=== PATIENT | male | born 1965 | race Caucasian/White ===

== ENCOUNTER 2017-05-21 18:39 | Emergency (ER) | payer BC ==
[2017-05-21] MEDS ORDERED: HYDROmorphone 1 MG/ML Syringe IM ONE (19:13)
--- NOTE | 2017-05-21 19:16 | EDM.PDOC ---
ED HPI GENERAL MEDICAL PROBLEM - General Chief Complaint: Upper Extremity Injury/Pain Stated Complaint: R HAND/WRIST SWELLING Time Seen by Provider: 05/21/17 19:09 Source of Information: Reports: Patient, Family, RN Notes Reviewed History Limitations: Reports: No Limitations - History of Present Illness INITIAL COMMENTS - FREE TEXT/NARRATIVE: 51-year-old gentleman presents emergency department today complaint of right hand swelling, he was evaluated by his primary care yesterday started on tramadol x-ray at the time done yesterday shows soft tissue swelling and arthritic changes suggestive of osteoarthritis no fracture or dislocation is noted, he states the hand is warm he did have a break in the skin about 2 weeks ago about 5 days ago he noticed some redness starting over the hand and about 3 days ago started having significant swelling and increased pain Right Hand Pain Score (Numeric/FACES): 10 - Related Data Allergies Allergy/AdvReac Type Severity Reaction Status Date / Time No Known Allergies Allergy Verified 05/21/17 18:55 Home Meds: Home Meds Ibuprofen [Ibuprofen] 50 mg PO QID 05/21/17 [History] Losartan [Cozaar] 50 mg PO DAILY 05/21/17 [History] Metoprolol Succinate [Toprol XL] 50 mg PO DAILY 05/21/17 [History] traMADol [Ultram] 50 mg PO ASDIRECTED PRN 05/21/17 [History] Past Medical History Cardiovascular History: Reports: Hypertension Gastrointestinal History: Reports: Colon Polyp Musculoskeletal History: Reports: Arthritis - Infectious Disease History Infectious Disease History: Reports: Chicken Pox - Past Surgical History GI Surgical History: Reports: Colonoscopy Social & Family History - Tobacco Use Smoking Status *Q: Never Smoker - Caffeine Use Caffeine Use: Reports: Coffee, Energy Drinks, Soda - Recreational Drug Use Recreational Drug Use: No Review of Systems - Review of Systems Review Of Systems: See Below Constitutional: Denies: Chills, Fever Musculoskeletal: Reports: Hand Pain Skin: Reports: Pallor, Rash, Erythema, Wound Neurological: Reports: No Symptoms ED EXAM, GENERAL - Physical Exam Exam: See Below Free Text/Narrative:: Examination of the right hand he does have marked edema over the dorsal surface of the hand into the proximal phalanges he has full range of motion all digits radial pulses +2 it is warm to the touch there to superficial abrasions noted on the dorsal surface tender to palpation Exam Limited By: No Limitations General Appearance: Alert, WD/WN, No Apparent Distress Course - Vital Signs Last Recorded V/S: Last Vital Signs Temp 98.6 F 05/21/17 18:57 Pulse 71 05/21/17 18:57 Resp 15 05/21/17 18:57 BP 137/76 05/21/17 18:57 Pulse Ox 96 05/21/17 18:57 - Orders/Labs/Meds Labs: Laboratory Tests 05/21/17 05/21/17 05/21/17 Range/Units 19:25 19:25 19:25 WBC 7.1 (4.5-11.0) K/uL RBC 4.84 (4.30-5.90) M/uL Hgb 15.4 H (12.0-15.0) g/dL Hct 43.0 (40.0-54.0) % MCV 89 (80-98) fL MCH 32 H (27-31) pg MCHC 36 (32-36) % Plt Count 191 (150-400) K/uL Neut % (Auto) 64 (36-66) % Lymph % (Auto) 18 L (24-44) % [place] % (Auto) 11 H (2-6) % Eos % (Auto) 6 H (2-4) % Baso % (Auto) 1 (0-1) % Sodium 141 (140-148) mmol/L Potassium 3.8 (3.6-5.2) mmol/L Chloride 104 (100-108) mmol/L Carbon Dioxide 31 (21-32) mmol/L Anion Gap 9.8 (5.0-14.0) mmol/L BUN 11 (7-18) mg/dL Creatinine 0.9 (0.8-1.3) mg/dL Est Cr Clr Drug Dosing 90.79 mL/min Estimated GFR (MDRD) > 60 (>60) Glucose 90 (74-106) mg/dL Lactic Acid 0.9 (0.4-2.0) mmol/L Uric Acid 5.1 (3.5-7.2) mg/dL Calcium 9.2 (8.5-10.1) mg/dL C-Reactive Protein 1.06 H (0.0-0.3) mg/dL Meds: Medications Discontinued Medications Generic Name Dose Route Start Last Admin Trade Name Freq PRN Reason Stop Dose Admin Ceftriaxone Sodium 1 gm/ 0 gm 05/21/17 20:09 Lidocaine HCl 2.1 ml IM 05/21/17 20:10 ONETIME ONE Hydromorphone HCl 1 mg 05/21/17 19:13 05/21/17 19:28 Dilaudid IM 05/21/17 19:14 1 mg ONETIME ONE Administration Departure - Departure Time of Disposition: 20:12 Disposition: Home, Self-Care 01 Condition: Good Clinical Impression: Cellulitis of hand, right - Discharge Information Referrals: Lawson Ashton Sr, MD [Primary Care Provider] - Forms: ED Department Discharge Additional Instructions: Take full course of antibiotics, use hydrocodone as needed for pain control, use ibuprofen for baseline pain control, please follow-up with your primary care provider in the next 2-3 days for reevaluation - Assessment/Plan Plan: Assessment Acuity = acute Site and laterality = cellulitis right hand Etiology = probable bacterial cause Manifestations = pain, edema Location of injury = Home Lab values = CBC, CMP unremarkable CRP elevated 1.06 Plan He was given 1 g Rocephin in the emergency department prescription written for Keflex 500 mg 4 times a day 7 days plus hydrocodone 5/325 one tab by mouth 3 times a day when necessary have him follow-up with his primary care in 2-3 days for reevaluation This note was dictated using [employer] voice recognition software please call with any questions on syntax or alonzo.
[2017-05-21] MEDS ORDERED: cefTRIAXone 1 GM, Lidocaine 1% 2.1 ML IM ONE ×2 (20:09)
== END 2017-05-21 20:24 | disposition home or self-care (01) ==
LOC: JP.ED 18:39
DX: L03.113 Cellulitis of right upper limb (principal); S60.511A Abrasion of right hand, initial encounter; I10 Essential (primary) hypertension; Z79.899 Other long term (current) drug therapy; X58.XXXA Exposure to other specified factors, initial encounter
CPT/HCPCS: 36415; 80048; 83605; 84550; 85025; 86140; 96372; 99284; J0696; J1170

== ENCOUNTER 2017-05-23 19:23 | Inpatient (IN) | payer BC ==
[2017-05-23] MEDS: Acetaminophen/HYDROcodone 325-5 MG Tab PO PRN (20:44)
[2017-05-23] MEDS ORDERED: Sodium Chloride 0.9% 10 ML Syringe FLUSH PRN (20:52)
[2017-05-23] MEDS ORDERED: Naloxone 0.4 MG/ML SDV IVPUSH PRN (22:07)
[2017-05-23] MEDS ORDERED: Sodium Chloride 0.9% 1,000 ML IV SCH (22:15)
[2017-05-24] MEDS: Acetaminophen/HYDROcodone 325-5 MG Tab PO PRN ×4 (02:03→17:33)
[2017-05-24] MEDS: VANCOMYCIN PHARMACY TO DOSE SCH ×2 (07:44→09:22)
[2017-05-24] MEDS: Metoprolol Succinate 50 MG Tab.ER PO SCH (08:59)
[2017-05-24] MEDS: Losartan 50 MG Tab PO SCH (08:59)
[2017-05-24] MEDS: HYDROmorphone/Normal Saline 15 MG/30 ML PCA IV PRN (12:26)
--- NOTE | 2017-05-24 12:38 | PCM.HP ---
H&P History of Present Illness - General Date of Service: 05/23/17 Admit Problem/Dx: Admission Diagnosis/Problem Admission Diagnosis/Problem Infection of hand Source of Information: Patient, Provider - History of Present Illness Initial Comments - Free Text/Narative: Drew started to have pain in his right hand Saturday with swelling and pain in the mid Knuckle. I saw him on Saturday and had swelling and pain of the knuckle. X-ray was done which showed arthritis no other abnormality. The etiology was unknown. They swelling progressed and went to the ER and was given antibiotics without improvement. I saw him this morning and sent him to Dr. Tapia a hand surgeon who advised him to be in the hospital and he wanted to come here rather than [facility]. Dr Tapia advised to start of Vanco and raise the hand and be in the hospital. I am concerned about a compartment syndrome as he can not move his middle finger. Right Hand Pain Score (Numeric/FACES): 10 - Related Data Allergies/Adverse Reactions: Allergies Allergy/AdvReac Type Severity Reaction Status Date / Time No Known Allergies Allergy Verified 05/23/17 19:50 Home Medications: Home Meds Losartan [Cozaar] 50 mg PO DAILY 05/21/17 [History] Metoprolol Succinate [Toprol XL] 50 mg PO DAILY 05/21/17 [History] Ibuprofen [Ibuprofen] 800 mg PO QID PRN 05/24/17 [History] traMADol [Ultram] 50 mg PO Q6H PRN 05/24/17 [History] Past Medical History HEENT History: Reports: None Cardiovascular History: Reports: Hypertension Gastrointestinal History: Reports: Colon Polyp Musculoskeletal History: Reports: Arthritis Dermatologic History: Reports: Cellulitis - Infectious Disease History Infectious Disease History: Reports: Chicken Pox - Past Surgical History HEENT Surgical History: Reports: None GI Surgical History: Reports: Colonoscopy Social & Family History - Family History HEENT: Reports: None Cardiac: Reports: MA, Stent : Reports: None OBGYN: Reports: None Endocrine/Metabolic: Reports: Diabetes, Type I Hematologic: Reports: None Oncologic: Reports: Lung, Ovarian - Tobacco Use Smoking Status *Q: Never Smoker Second Hand Smoke Exposure: No - Caffeine Use Caffeine Use: Reports: Coffee, Energy Drinks - Recreational Drug Use Recreational Drug Use: No H&P Review of Systems - Review of Systems: Review Of Systems: See Below General: Reports: No Symptoms HEENT: Reports: No Symptoms Pulmonary: Reports: No Symptoms Cardiovascular: Reports: No Symptoms Gastrointestinal: Reports: No Symptoms Musculoskeletal: Reports: Joint Pain, Other (swelling and pain right hand) Skin: Reports: No Symptoms Psychiatric: Reports: No Symptoms Exam - Exam Exam: See Below - Vital Signs Vital Signs: Last Vital Signs Temp 98.4 F 05/24/17 11:00 Pulse 68 05/24/17 11:00 Resp 18 05/24/17 11:00 BP 135/75 05/24/17 11:00 Pulse Ox 95 05/24/17 11:00 Weight: 201 lb 4 oz - Exam General: Alert, Oriented, 4 HEENT: PERRLA, Hearing Intact, Mucosa Moist & [place], Nares Patent, Normal Nasal Septum, Posterior Pharynx Clear, Conjunctiva Clear, EOMI, EACs Clear, TMs Clear Neck: Supple, Trachea Midline, 2 Lungs: Clear to Auscultation, Normal Respiratory Effort Cardiovascular: Regular Rate, Regular Rhythm GI/Abdominal Exam: Normal Bowel Sounds, Soft, Non-Tender, No Organomegaly, No Distention, No Abnormal Bruit, No Mass, Pelvis Stable Extremities: Other (right hand swelling and unable to move his middle finger.) Peripheral Pulses: 1+: Radial (L), Radial (R) Neuro Extensive - Mental Status: Alert, Oriented x3, Normal Mood/Affect, Normal Cognition Neuro Extensive - Motor, Sensory, Reflexes: CN II-XII Intact, Normal Gait, Normal Reflexes - Patient Data Lab Results Last 24 hrs: Laboratory Results - last 24 hr 05/23/17 05/23/17 05/23/17 Range/Units 20:54 20:54 22:47 WBC 8.1 (4.5-11.0) K/uL RBC 4.66 (4.30-5.90) M/uL Hgb 14.9 (12.0-15.0) g/dL Hct 41.5 (40.0-54.0) % MCV 89 (80-98) fL MCH 32 H (27-31) pg MCHC 36 (32-36) % Plt Count 197 (150-400) K/uL Neut % (Auto) 67 H (36-66) % Lymph % (Auto) 17 L (24-44) % [place] % (Auto) 9 H (2-6) % Eos % (Auto) 7 H (2-4) % Baso % (Auto) 0 (0-1) % Sodium 139 L (140-148) mmol/L Potassium 3.9 (3.6-5.2) mmol/L Chloride 101 (100-108) mmol/L Carbon Dioxide 31 (21-32) mmol/L Anion Gap 10.9 (5.0-14.0) mmol/L BUN 13 (7-18) mg/dL Creatinine 0.9 (0.8-1.3) mg/dL Est Cr Clr Drug Dosing 87.63 mL/min Estimated GFR (MDRD) > 60 (>60) Glucose 91 (74-106) mg/dL Calcium 8.7 (8.5-10.1) mg/dL Total Bilirubin 0.6 (0.2-1.0) mg/dL AST 34 (15-37) U/L ALT 53 (12-78) U/L Alkaline Phosphatase 55 (46-116) U/L Total Protein 7.0 (6.4-8.2) g/dL Albumin 3.7 (3.4-5.0) g/dL Globulin 3.3 (2.3-3.5) g/dL Albumin/Globulin Ratio 1.1 L (1.2-2.2) Urine Color Yellow Urine Appearance Clear Urine pH 7.0 (4.5-8.0) Ur Specific [place] 1.015 (1.008-1.030) Urine Protein Negative (NEGATIVE) mg/dL Urine Glucose (UA) Normal (NEGATIVE) mg/dL Urine Ketones Negative (NEGATIVE) mg/dL Urine Occult Blood Negative (NEGATIVE) Urine Nitrite Negative (NEGAITVE) Urine Bilirubin Negative (NEGATIVE) Urine Urobilinogen 4 (NORMAL) mg/dL Ur Leukocyte Esterase Negative (NEGATIVE) Urine RBC 0-5 (0-5) Urine WBC 0-5 (0-5) Ur Epithelial Cells Few Amorphous Sediment Few Urine Bacteria Few Urine Mucus Not seen Result Diagrams: 05/23/17 20:54 05/23/17 20:54 *Q Meaningful Use (ADM) - VTE *Q VTE Criteria *Q: - Stroke *Q Stroke Criteria *Q: - AMI *Q AMI Criteria *Q: Problem List Initiated/Reviewed/Updated: Yes Orders Last 24hrs: Active Orders 24 hr Category Date Time Status Admission Status [Patient Status] [ADT] Routine ADT 05/23/17 19:23 Active Activity as Tolerated [RC] .Routine Care 05/23/17 21:02 Active Communication Order [RC] Per Unit Routine Care 05/23/17 21:00 Active Communication Order [RC] STAT Care 05/23/17 22:07 Active Notify Provider [RC] PRN Care 05/23/17 22:07 Active HOST/HOSTESS RESTAURANT Record [RC] PER UNIT ROUTINE Care 05/23/17 22:07 Active Pulse Oximetry [RC] CONTINUOUS Care 05/23/17 22:07 Active Vital Signs [RC] Q8H Care 05/23/17 20:51 Active PT Evaluation and Treatment [CONS] Routine Cons 05/23/17 21:01 Active Regular Diet [DIET] Diet 05/24/17 Breakfast Active VANCOMYCIN TROUGH [CHEM] Timed Lab 05/25/17 08:30 Ordered Acetaminophen/HYDROcodone [[place] 325-5 MG] Med 05/23/17 20:17 Active 1 - 2 tab PO Q4H PRN HYDROmorphone/Normal Saline [Dilaudid HOST/HOSTESS RESTAURANT 15 MG in NS Med 05/23/17 22:07 Active 30 ML] See Protocol IV ASDIRECTED PRN Losartan [Cozaar] Med 05/24/17 09:00 Active 50 mg PO DAILY Metoprolol Succinate [Toprol XL] Med 05/24/17 09:00 Active 50 mg PO DAILY Naloxone [Narcan] Med 05/23/17 22:07 Active 0.4 mg IVPUSH Q2M PRN Sodium Chloride 0.9% [Normal Saline] 1,000 ml Med 05/23/17 22:15 Active IV ASDIRECTED Sodium Chloride 0.9% [Saline Flush] Med 05/23/17 20:52 Active 10 ml FLUSH ASDIRECTED PRN Vancomycin 1.25 gm Med 05/23/17 21:00 Active Sodium Chloride 0.9% [Normal Saline] 250 ml IV Q12H Medication Discontinuation Instructions [OM.PC] Stat Oth 05/23/17 22:07 Ordered Saline Lock Insert [OM.PC] Routine Oth 05/23/17 20:52 Ordered Medication Orders Hydrocodone Bitart/Acetaminophen ([place] 325-5 Mg) 1 - 2 tab PO Q4H PRN PRN Reason: Pain Last Admin: 05/24/17 12:24 Dose: 2 tab Admin: 05/24/17 07:48 Dose: 2 tab Admin: 05/24/17 02:03 Dose: 2 tab Admin: 05/23/17 20:44 Dose: 2 tab Hydromorphone HCl (Dilaudid Medical Authorization Specialist 15 Mg In Ns 30 Ml) 0 mg IV ASDIRECTED PRN; Protocol PRN Reason: Pain Last Admin: 05/24/17 12:26 Dose: 15 mg Vancomycin HCl 1.25 gm/ Sodium (Chloride) 250 mls @ 166.667 mls/hr IV Q12H NIRAV Last Admin: 05/24/17 08:44 Dose: 166.667 mls/hr Admin: 05/23/17 22:29 Dose: 166.667 mls/hr Sodium Chloride (Normal Saline) 1,000 mls @ 25 mls/hr IV ASDIRECTED NIRAV Losartan Potassium (Cozaar) 50 mg PO DAILY [facility] Last Admin: 05/24/17 08:59 Dose: 50 mg Metoprolol Succinate (Toprol Xl) 50 mg PO DAILY [facility] Last Admin: 05/24/17 08:59 Dose: 50 mg Naloxone HCl (Narcan) 0.4 mg IVPUSH Q2M PRN PRN Reason: Respiratory Distress Sodium Chloride (Saline Flush) 10 ml FLUSH ASDIRECTED PRN PRN Reason: Keep Vein Open Assessment/Plan Comment:: Assessment/Plan: #1. Infection of right hand: Will srart him on Vancomycin and begin PT Control kpain with medicine. #2. HTN: continue with Losartan
--- NOTE | 2017-05-24 16:24 | PCM.PN ---
- General Info Date of Service: 05/24/17 Functional Status: Reports: Pain Controlled - Review of Systems General: Reports: No Symptoms Pulmonary: Reports: No Symptoms Cardiovascular: Reports: No Symptoms Gastrointestinal: Reports: No Symptoms Musculoskeletal: Reports: No Symptoms Skin: Reports: No Symptoms Psychiatric: Reports: No Symptoms - Patient Data Vitals - Most Recent: Last Vital Signs Temp 99.5 F 05/24/17 16:06 Pulse 98 05/24/17 16:06 Resp 18 05/24/17 16:06 BP 125/67 05/24/17 16:06 Pulse Ox 98 05/24/17 16:06 Weight - Most Recent: 201 lb 4 oz I&O - Last 24 Hours: Intake & Output 05/24/17 05/24/17 05/24/17 06:59 14:59 22:59 Intake Total 552 250 Balance 552 250 Lab Results Last 24 Hours: Laboratory Results - last 24 hr 05/23/17 05/23/17 05/23/17 Range/Units 20:54 20:54 22:47 WBC 8.1 (4.5-11.0) K/uL RBC 4.66 (4.30-5.90) M/uL Hgb 14.9 (12.0-15.0) g/dL Hct 41.5 (40.0-54.0) % MCV 89 (80-98) fL MCH 32 H (27-31) pg MCHC 36 (32-36) % Plt Count 197 (150-400) K/uL Neut % (Auto) 67 H (36-66) % Lymph % (Auto) 17 L (24-44) % [place] % (Auto) 9 H (2-6) % Eos % (Auto) 7 H (2-4) % Baso % (Auto) 0 (0-1) % Sodium 139 L (140-148) mmol/L Potassium 3.9 (3.6-5.2) mmol/L Chloride 101 (100-108) mmol/L Carbon Dioxide 31 (21-32) mmol/L Anion Gap 10.9 (5.0-14.0) mmol/L BUN 13 (7-18) mg/dL Creatinine 0.9 (0.8-1.3) mg/dL Est Cr Clr Drug Dosing 87.63 mL/min Estimated GFR (MDRD) > 60 (>60) Glucose 91 (74-106) mg/dL Calcium 8.7 (8.5-10.1) mg/dL Total Bilirubin 0.6 (0.2-1.0) mg/dL AST 34 (15-37) U/L ALT 53 (12-78) U/L Alkaline Phosphatase 55 (46-116) U/L Total Protein 7.0 (6.4-8.2) g/dL Albumin 3.7 (3.4-5.0) g/dL Globulin 3.3 (2.3-3.5) g/dL Albumin/Globulin Ratio 1.1 L (1.2-2.2) Urine Color Yellow Urine Appearance Clear Urine pH 7.0 (4.5-8.0) Ur Specific [place] 1.015 (1.008-1.030) Urine Protein Negative (NEGATIVE) mg/dL Urine Glucose (UA) Normal (NEGATIVE) mg/dL Urine Ketones Negative (NEGATIVE) mg/dL Urine Occult Blood Negative (NEGATIVE) Urine Nitrite Negative (NEGAITVE) Urine Bilirubin Negative (NEGATIVE) Urine Urobilinogen 4 (NORMAL) mg/dL Ur Leukocyte Esterase Negative (NEGATIVE) Urine RBC 0-5 (0-5) Urine WBC 0-5 (0-5) Ur Epithelial Cells Few Amorphous Sediment Few Urine Bacteria Few Urine Mucus Not seen Med Orders - Current: Current Medications Hydrocodone Bitart/Acetaminophen ([place] 325-5 Mg) 1 - 2 tab PO Q4H PRN PRN Reason: Pain Last Admin: 05/24/17 12:24 Dose: 2 tab Hydromorphone HCl (Dilaudid Rn Intern 15 Mg In Ns 30 Ml) 0 mg IV ASDIRECTED PRN; Protocol PRN Reason: Pain Last Admin: 05/24/17 12:26 Dose: 15 mg Vancomycin HCl 1.25 gm/ Sodium (Chloride) 250 mls @ 166.667 mls/hr IV Q12H NIRAV Last Admin: 05/24/17 08:44 Dose: 166.667 mls/hr Sodium Chloride (Normal Saline) 1,000 mls @ 25 mls/hr IV ASDIRECTED NIRAV Losartan Potassium (Cozaar) 50 mg PO DAILY NIRAV Last Admin: 05/24/17 08:59 Dose: 50 mg Metoprolol Succinate (Toprol Xl) 50 mg PO DAILY NIRAV Last Admin: 05/24/17 08:59 Dose: 50 mg Naloxone HCl (Narcan) 0.4 mg IVPUSH Q2M PRN PRN Reason: Respiratory Distress Sodium Chloride (Saline Flush) 10 ml FLUSH ASDIRECTED PRN PRN Reason: Keep Vein Open Discontinued Medications Lidocaine HCl (Xylocaine-Mpf 1%) 0.1 ml INJECT ONETIME ONE Stop: 05/23/17 23:32 Last Admin: 05/23/17 23:43 Dose: 0.1 ml Vancomycin Pharmacy (To Dose) 0 each .XX DAILY NIRAV Stop: 05/24/17 09:00 Last Admin: 05/24/17 09:22 Dose: Not Given - Exam General: Alert, Oriented Neck: Supple Lungs: Clear to Auscultation, Normal Respiratory Effort Cardiovascular: Regular Rate, Regular Rhythm Back Exam: Other (Knuckle more prominent as swelling goes down.) - Problem List Review Problem List Initiated/Reviewed/Updated: Yes - My Orders Last 24 Hours: My Active Orders 05/23/17 19:23 Admission Status [Patient Status] [ADT] Routine 05/23/17 20:17 Acetaminophen/HYDROcodone [[place] 325-5 MG] 1 - 2 tab PO Q4H PRN 05/23/17 20:51 Vital Signs [RC] Q8H 05/23/17 20:52 Sodium Chloride 0.9% [Saline Flush] 10 ml FLUSH ASDIRECTED PRN Saline Lock Insert [OM.PC] Routine 05/23/17 21:00 Communication Order [RC] Per Unit Routine Vancomycin 1.25 gm Sodium Chloride 0.9% [Normal Saline] 250 ml IV Q12H 05/23/17 21:01 PT Evaluation and Treatment [CONS] Routine 05/23/17 21:02 Activity as Tolerated [RC] .Routine 05/23/17 22:07 Communication Order [RC] STAT Notify Provider [RC] PRN CLOTH LAMINATING SUPERVISOR Record [RC] PER UNIT ROUTINE Pulse Oximetry [RC] CONTINUOUS HYDROmorphone/Normal Saline [Dilaudid CLOTH LAMINATING SUPERVISOR 15 MG in NS 30 ML] See Protocol IV ASDIRECTED PRN Naloxone [Narcan] 0.4 mg IVPUSH Q2M PRN Medication Discontinuation Instructions [OM.PC] Stat 05/23/17 22:15 Sodium Chloride 0.9% [Normal Saline] 1,000 ml IV ASDIRECTED 05/24/17 09:00 Losartan [Cozaar] 50 mg PO DAILY Metoprolol Succinate [Toprol XL] 50 mg PO DAILY 05/24/17 14:35 SCD [Sequential Compression Device] [OM.PC] Routine 05/24/17 Breakfast Regular Diet [DIET] 05/25/17 08:30 VANCOMYCIN TROUGH [CHEM] Timed - Plan Plan:: Assessment/Plan: #1. Infection of right hand: Will srart him on Vancomycin and begin PT Control pain with medicine. #2. HTN: continue with Losartan. He does have a low grade fever of 99.5 will continue with Vanco as the swelling is going down Will do blood work in the morning.
[2017-05-24] MEDS ORDERED: Docusate Sodium 100 MG Cap PO PRN (20:39)
[2017-05-24] MEDS ORDERED: diphenhydrAMINE 25 MG Cap PO PRN (21:27)
[2017-05-25] MEDS: HYDROmorphone/Normal Saline 15 MG/30 ML PCA IV PRN (08:32)
[2017-05-25] MEDS: Metoprolol Succinate 50 MG Tab.ER PO SCH (08:41)
[2017-05-25] MEDS: Losartan 50 MG Tab PO SCH (08:41)
[2017-05-25] MEDS ORDERED: oxyCODONE 5 MG Tab PO PRN (13:34)
--- NOTE | 2017-05-25 13:43 | PCM.CONS ---
H&P History of Present Illness - General Date of Service: 05/25/17 Admit Problem/Dx: Admission Diagnosis/Problem Admission Diagnosis/Problem Infection of hand Source of Information: Patient, Family, Provider - History of Present Illness Initial Comments - Free Text/Narative: Sean was admitted for management of cellulitis involving the right hand 2 days ago. I was asked to see him for a second opinion regarding cellulitis management. He reports scraping his hand approximately 5-6 days ago. He noted redness and swelling involving the third and fourth fingers on his right hand the next day. He was seen in the emergency room clinic and started on oral cephalexin. He was seen in the clinic the next day and sent to see a hand specialist. There was concern for infection at that point and he was then admitted to the hospital for IV antibiotics. He has been managed with vancomycin. He has been having low-grade temperature elevations but no true fevers. He reports throbbing pain involving the dorsum of his right hand extending in between the fingers. This is a moderately severe pain that is worse with any sort of pressure or movement. He has been using pain pills and IV pain medications with some improvement in his pain. Other than his hand he feels well and does not endorse shortness of breath or abdominal pain. Vital signs have been stable. White count is normal. Right Hand Pain Score (Numeric/FACES): 8 - Related Data Allergies/Adverse Reactions: Allergies Allergy/AdvReac Type Severity Reaction Status Date / Time No Known Allergies Allergy Verified 05/23/17 19:50 Home Medications: Home Meds Losartan [Cozaar] 50 mg PO DAILY 05/21/17 [History] Metoprolol Succinate [Toprol XL] 50 mg PO DAILY 05/21/17 [History] Ibuprofen [Ibuprofen] 800 mg PO QID PRN 05/24/17 [History] traMADol [Ultram] 50 mg PO Q6H PRN 05/24/17 [History] Past Medical History HEENT History: Reports: None Cardiovascular History: Reports: Hypertension Gastrointestinal History: Reports: Colon Polyp Musculoskeletal History: Reports: Arthritis Dermatologic History: Reports: Cellulitis - Infectious Disease History Infectious Disease History: Reports: Chicken Pox - Past Surgical History HEENT Surgical History: Reports: None GI Surgical History: Reports: Colonoscopy Social & Family History - Family History HEENT: Reports: None Cardiac: Reports: GA, Stent : Reports: None OBGYN: Reports: None Endocrine/Metabolic: Reports: Diabetes, Type I Hematologic: Reports: None Oncologic: Reports: Lung, Ovarian - Tobacco Use Smoking Status *Q: Never Smoker Second Hand Smoke Exposure: No - Caffeine Use Caffeine Use: Reports: Coffee, Energy Drinks - Alcohol Use Alcohol Use History: No - Recreational Drug Use Recreational Drug Use: No H&P Review of Systems - Review of Systems: Review Of Systems: See Below Free Text/Narrative: A complete 12 point review of systems was obtained. Pertinent positives and negatives are noted in the history of present illness. All other systems were reviewed and were negative except as noted. Exam - Exam Exam: See Below - Vital Signs Vital Signs: Last Vital Signs Temp 37.6 C 05/25/17 11:58 Pulse 82 05/25/17 11:58 Resp 16 05/25/17 11:58 BP 142/77 H 05/25/17 11:58 Pulse Ox 97 05/25/17 13:15 Weight: 91.285 kg - Exam Quality Assessment: No: Supplemental Oxygen General: Alert, Oriented, Cooperative. No: Mild Distress HEENT: Conjunctiva Clear, Mucosa Moist & [place]. No: Scleral Icterus Lungs: Normal Respiratory Effort GI/Abdominal Exam: Soft, No Distention Extremities: No Pedal Edema, Other (dorsum of right hand very swollen with approximately 2 cm diameter area of fluctuance just proximal to the distal portion of the third metacarpal. There is significant overlying warmth, induration and erythema extending laterally to the fourth metacarpal and medially to the edge of the second metacarpal. The warmth, swelling and tenderness wraps around to the palmar surface between the second and third and third and fourth fingers.) Skin: Warm, Dry Neuro Extensive - Mental Status: Alert, Oriented x3 Psychiatric: Alert, Normal Affect - Patient Data Lab Results Last 24 hrs: Laboratory Results - last 24 hr 05/25/17 05/25/17 Range/Units 08:27 08:27 WBC 9.9 (4.5-11.0) K/uL RBC 5.07 (4.30-5.90) M/uL Hgb 16.0 H (12.0-15.0) g/dL Hct 44.6 (40.0-54.0) % MCV 88 (80-98) fL MCH 32 H (27-31) pg MCHC 36 (32-36) % Plt Count 246 (150-400) K/uL Neut % (Auto) 75 H (36-66) % Lymph % (Auto) 12 L (24-44) % [place] % (Auto) 10 H (2-6) % Eos % (Auto) 3 (2-4) % Baso % (Auto) 0 (0-1) % Vancomycin Trough 6.4 L (10.0-20.0) ug/mL Result Diagrams: 05/25/17 08:27 05/23/17 20:54 Imaging Impressions Last 24 hrs: CT scan of the hand - images personally reviewed - Consult PN Assessment/Plan Procedures: Procedures ASSAY OF BLOOD/URIC ACID (05/21/17) ASSAY OF LACTIC ACID (05/21/17) C-REACTIVE PROTEIN (05/21/17) CHEST X-RAY 2VW FRONTAL&LATL (02/22/15) COMPLETE CBC W/AUTO DIFF WBC (05/21/17) EMERGENCY DEPT VISIT (05/21/17) METABOLIC PANEL TOTAL CA (05/21/17) ROUTINE VENIPUNCTURE (05/21/17) THER/PROPH/DIAG INJ SC/IM (05/21/17) X-RAY EXAM OF HAND (05/20/17) (1) Cellulitis and abscess of hand SNOMED Code(s): 563001498 Code(s): L03.119 - CELLULITIS OF UNSPECIFIED PART OF LIMB; L02.519 - CUTANEOUS ABSCESS OF UNSPECIFIED HAND Current Visit: Yes Problem List Initiated/Reviewed/Updated: Yes My Orders Last 24 Hours: My Active Orders 05/25/17 13:34 oxyCODONE 5 - 10 mg PO Q4H PRN 05/25/17 13:35 Hand wo Cont Rt [CT] Routine 05/25/17 13:45 Piperacillin/Tazobactam [Zosyn] 4.5 gm Sodium Chloride 0.9% [Normal Saline] 100 ml IV ONETIME 05/25/17 20:00 Piperacillin/Tazobactam [Zosyn] 3.375 gm Sodium Chloride 0.9% [Normal Saline] 50 ml IV Q6H Plan: ASSESSMENT AND PLAN - Cellulitis and abscess right hand - abscess suspected with fluctuance noted over the dorsum of the hand near the base of the third metacarpal. Hand seems to be getting worse despite therapy with vancomycin. He did have a recent abrasion to the hand and anaerobic bacteria need to be considered at this point. He does not appear septic. Minimal function of the third and fourth fingers on the right hand raises concern for involvement of deeper structures including tendons. -CT scan of the hand -Continue vancomycin -Start Pip/Tazo -Change pain control to oxycodone -Patient will need referral to a hand specialist for debridement if an abscess is identified Miky Garvin M.D. Requesting Provider: Dr. Ashton Date Consult Requested: 05/25/17 Reason for Consult: second opinion regarding right hand cellulitis Patient History Reviewed: Yes Admission H&P Reviewed: Yes Notified Requestor: Yes Time Spent (in minutes): 60
[2017-05-25] MEDS ORDERED: Piperacillin/Tazobactam/Dext 4.5 GM in Premix Bag 1 BAG IV ONE (14:00)
--- NOTE | 2017-05-25 14:22 | PCM.PN ---
- General Info Date of Service: 05/25/17 Functional Status: Reports: Pain Controlled - Review of Systems General: Reports: Other (swelling right hand) HEENT: Reports: No Symptoms Pulmonary: Reports: No Symptoms Cardiovascular: Reports: No Symptoms Gastrointestinal: Reports: No Symptoms - Patient Data Vitals - Most Recent: Last Vital Signs Temp 99.7 F 05/25/17 11:58 Pulse 82 05/25/17 11:58 Resp 16 05/25/17 11:58 BP 142/77 H 05/25/17 11:58 Pulse Ox 97 05/25/17 13:15 Weight - Most Recent: 201 lb 4 oz I&O - Last 24 Hours: Intake & Output 05/24/17 05/25/17 05/25/17 22:59 06:59 14:59 Intake Total 770 264 730 Output Total 525 1100 Balance 245 -836 730 Lab Results Last 24 Hours: Laboratory Results - last 24 hr 05/25/17 05/25/17 Range/Units 08:27 08:27 WBC 9.9 (4.5-11.0) K/uL RBC 5.07 (4.30-5.90) M/uL Hgb 16.0 H (12.0-15.0) g/dL Hct 44.6 (40.0-54.0) % MCV 88 (80-98) fL MCH 32 H (27-31) pg MCHC 36 (32-36) % Plt Count 246 (150-400) K/uL Neut % (Auto) 75 H (36-66) % Lymph % (Auto) 12 L (24-44) % [place] % (Auto) 10 H (2-6) % Eos % (Auto) 3 (2-4) % Baso % (Auto) 0 (0-1) % Vancomycin Trough 6.4 L (10.0-20.0) ug/mL Med Orders - Current: Current Medications Diphenhydramine HCl (Benadryl) 25 - 50 mg PO Q6H PRN PRN Reason: Itching Last Admin: 05/24/17 21:42 Dose: 50 mg Docusate Sodium (Colace) 100 mg PO DAILY PRN PRN Reason: Constipation Last Admin: 05/24/17 20:49 Dose: 100 mg Sodium Chloride (Normal Saline) 1,000 mls @ 25 mls/hr IV ASDIRECTED NIRAV Last Admin: 05/25/17 08:37 Dose: 25 mls/hr Vancomycin HCl 1.5 gm/ Sodium (Chloride) 250 mls @ 166.667 mls/hr IV Q12H [facility] Last Admin: 05/25/17 09:48 Dose: 166.667 mls/hr Piperacillin/Tazobactam/ (Dextrose 4.5 gm/ Premix) 100 mls @ 200 mls/hr IV ONETIME ONE Stop: 05/25/17 14:29 Last Admin: 05/25/17 14:11 Dose: 200 mls/hr Piperacillin/Tazobactam/ (Dextrose 3.375 gm/ Premix) 50 mls @ 100 mls/hr IV Q6H [facility] Losartan Potassium (Cozaar) 50 mg PO DAILY [facility] Last Admin: 05/25/17 08:41 Dose: 50 mg Metoprolol Succinate (Toprol Xl) 50 mg PO DAILY [facility] Last Admin: 05/25/17 08:41 Dose: 50 mg Naloxone HCl (Narcan) 0.4 mg IVPUSH Q2M PRN PRN Reason: Respiratory Distress Oxycodone HCl (Oxycodone) 5 - 10 mg PO Q4H PRN PRN Reason: Pain Last Admin: 05/25/17 14:10 Dose: 10 mg Sodium Chloride (Saline Flush) 10 ml FLUSH ASDIRECTED PRN PRN Reason: Keep Vein Open Discontinued Medications Hydrocodone Bitart/Acetaminophen ([place] 325-5 Mg) 1 - 2 tab PO Q4H PRN PRN Reason: Pain Last Admin: 05/24/17 17:33 Dose: 2 tab Hydromorphone HCl (Dilaudid Envelope Cutter 15 Mg In Ns 30 Ml) 0 mg IV ASDIRECTED PRN; Protocol PRN Reason: Pain Last Admin: 05/25/17 08:32 Dose: 15 mg Vancomycin HCl 1.25 gm/ Sodium (Chloride) 250 mls @ 166.667 mls/hr IV Q12H [facility] Last Admin: 05/25/17 09:21 Dose: Not Given Lidocaine HCl (Xylocaine-Mpf 1%) 0.1 ml INJECT ONETIME ONE Stop: 05/23/17 23:32 Last Admin: 05/23/17 23:43 Dose: 0.1 ml Vancomycin Pharmacy (To Dose) 0 each .XX DAILY [facility] Stop: 05/24/17 09:00 Last Admin: 05/24/17 09:22 Dose: Not Given - Exam General: Alert, Oriented Neck: Supple Lungs: Clear to Auscultation, Normal Respiratory Effort Cardiovascular: Regular Rate, Regular Rhythm Extremities: Other (Increased swelling vs last night and still unable to move the middle finger) Psy/Mental Status: Alert, Normal Affect, Normal Mood - Problem List Review Problem List Initiated/Reviewed/Updated: Yes - My Orders Last 24 Hours: My Active Orders 05/24/17 14:35 SCD [Sequential Compression Device] [OM.PC] Routine 05/24/17 20:39 Docusate Sodium [Colace] 100 mg PO DAILY PRN 05/24/17 21:27 diphenhydrAMINE [Benadryl] 25 - 50 mg PO Q6H PRN 05/25/17 10:00 Vancomycin 1.5 gm Sodium Chloride 0.9% [Normal Saline] 250 ml IV Q12H 05/25/17 11:20 Consult to Physician [CONS] Routine 05/25/17 11:23 Notify Provider Consults [RC] ASDIRECTED 05/26/17 06:00 CREATININE W/GFR [CHEM] Routine - Plan Plan:: Assessment/Plan: #1. Infection of right hand: Sean requested to see Dr. Garvin and he ordered a CT of the hand with contrast and started on Zosyn. He has not made any improvement so far and a CT of the hand was ordered. Temp. was 99.7 today. I spoke with Suleiman Arce,hospitalist and [place], hand surgeon. Dr. Barroso said a CT of the hand would not be needed and cancel it, which has been done. WBC today was 9.9 with 75% sigs. He will be transferred to [place] for continued care. #2. HTN: continue with Losartan.
--- NOTE | 2017-05-25 15:02 | PCM.DCSUM1 ---
Discharge Summary - Hospital Course Brief History: Drew started to have pain in his right hand Saturday the May. with swelling and pain in the mid Knuckle. I saw him on Saturday the and had swelling and pain of the knuckle. X-ray was done which showed arthritis no other abnormality. The etiology was unknown. The swelling progressed and went to the ER and was given antibiotics without improvement. I saw him this morning and sent him to Dr. Tapia a hand surgeon who advised him to be in the hospital and he wanted to come here rather than [facility]. Dr Tapia advised to start of Vanco and raise the hand and be in the hospital. I was concerned about a compartment syndrome as he could not move his middle finger. - Discharge Data Discharge Date: 05/25/17 Discharge Disposition: DC/Tfer to Acute Hospital 02 Condition: Good - Patient Summary/Data Consults: Consultations 05/23/17 21:01 PT Evaluation and Treatment [CONS] Routine Please Evaluate and Treat. PT Reason for Consult: Other (Type Response) Pending Discharge: eval and treat for hand infection This query below is only for informational purposes and is not editable. 05/25/17 11:20 Consult to Physician [CONS] Routine Consulting Provider: Miky Garvin Call Completed to Consulting Physician: Yes Reason for Consult: second opinion of care Person Notified: yes Date Notified: 05/25/17 Time Notified: 11:23 Hospital Course: He was started on Vanco. as ordered by Dr. Sevilla but did not improve. Drew wanted to get a 2nd opinion and seen by Dr. Garvin who ordered a CT of the hand with contrast. Drew is unhappy with the care so I call [facility] in [place] and spoke with EVELYN Arce and [place] hand surgeon. Dr. Barroso said the CT of the Hand was not needed and it was not done. He is being transferred to [facility] in [place] for continued care. He had a low grade fever 99.9 upon discharge. - Patient Instructions Diet: Heart Healthy Diet Activity: As Tolerated - Discharge Plan Home Medications: Home Meds Losartan [Cozaar] 50 mg PO DAILY 05/21/17 [History] Metoprolol Succinate [Toprol XL] 50 mg PO DAILY 05/21/17 [History] Ibuprofen [Ibuprofen] 800 mg PO QID PRN 05/24/17 [History] traMADol [Ultram] 50 mg PO Q6H PRN 05/24/17 [History] - Discharge Summary/Plan Comment DC Time >30 min.: No - Patient Data Vitals - Most Recent: Last Vital Signs Temp 99.7 F 05/25/17 11:58 Pulse 82 05/25/17 11:58 Resp 16 05/25/17 11:58 BP 142/77 H 05/25/17 11:58 Pulse Ox 97 05/25/17 13:15 Weight - Most Recent: 201 lb 4 oz I&O - Last 24 hours: Intake & Output 05/24/17 05/25/17 05/25/17 22:59 06:59 14:59 Intake Total 770 264 730 Output Total 525 1100 Balance 245 -836 730 Lab Results - Last 24 hrs: Laboratory Results - last 24 hr 05/25/17 05/25/17 Range/Units 08:27 08:27 WBC 9.9 (4.5-11.0) K/uL RBC 5.07 (4.30-5.90) M/uL Hgb 16.0 H (12.0-15.0) g/dL Hct 44.6 (40.0-54.0) % MCV 88 (80-98) fL MCH 32 H (27-31) pg MCHC 36 (32-36) % Plt Count 246 (150-400) K/uL Neut % (Auto) 75 H (36-66) % Lymph % (Auto) 12 L (24-44) % [place] % (Auto) 10 H (2-6) % Eos % (Auto) 3 (2-4) % Baso % (Auto) 0 (0-1) % Vancomycin Trough 6.4 L (10.0-20.0) ug/mL Med Orders - Current: Current Medications Diphenhydramine HCl (Benadryl) 25 - 50 mg PO Q6H PRN PRN Reason: Itching Last Admin: 05/24/17 21:42 Dose: 50 mg Docusate Sodium (Colace) 100 mg PO DAILY PRN PRN Reason: Constipation Last Admin: 05/24/17 20:49 Dose: 100 mg Sodium Chloride (Normal Saline) 1,000 mls @ 25 mls/hr IV ASDIRECTED NIR[facility] Last Admin: 05/25/17 08:37 Dose: 25 mls/hr Vancomycin HCl 1.5 gm/ Sodium (Chloride) 250 mls @ 166.667 mls/hr IV Q12H [facility] Last Admin: 05/25/17 09:48 Dose: 166.667 mls/hr Piperacillin/Tazobactam/ (Dextrose 3.375 gm/ Premix) 50 mls @ 100 mls/hr IV Q6H [facility] Losartan Potassium (Cozaar) 50 mg PO DAILY [facility] Last Admin: 05/25/17 08:41 Dose: 50 mg Metoprolol Succinate (Toprol Xl) 50 mg PO DAILY [facility] Last Admin: 05/25/17 08:41 Dose: 50 mg Naloxone HCl (Narcan) 0.4 mg IVPUSH Q2M PRN PRN Reason: Respiratory Distress Oxycodone HCl (Oxycodone) 5 - 10 mg PO Q4H PRN PRN Reason: Pain Last Admin: 05/25/17 14:10 Dose: 10 mg Sodium Chloride (Saline Flush) 10 ml FLUSH ASDIRECTED PRN PRN Reason: Keep Vein Open Discontinued Medications Hydrocodone Bitart/Acetaminophen ([place] 325-5 Mg) 1 - 2 tab PO Q4H PRN PRN Reason: Pain Last Admin: 05/24/17 17:33 Dose: 2 tab Hydromorphone HCl (Dilaudid [employer] Assistant 15 Mg In Ns 30 Ml) 0 mg IV ASDIRECTED PRN; Protocol PRN Reason: Pain Last Admin: 05/25/17 08:32 Dose: 15 mg Vancomycin HCl 1.25 gm/ Sodium (Chloride) 250 mls @ 166.667 mls/hr IV Q12H [facility] Last Admin: 05/25/17 09:21 Dose: Not Given Piperacillin/Tazobactam/ (Dextrose 4.5 gm/ Premix) 100 mls @ 200 mls/hr IV ONETIME ONE Stop: 05/25/17 14:29 Last Admin: 05/25/17 14:11 Dose: 200 mls/hr Lidocaine HCl (Xylocaine-Mpf 1%) 0.1 ml INJECT ONETIME ONE Stop: 05/23/17 23:32 Last Admin: 05/23/17 23:43 Dose: 0.1 ml Vancomycin Pharmacy (To Dose) 0 each .XX DAILY [facility] Stop: 05/24/17 09:00 Last Admin: 05/24/17 09:22 Dose: Not Given *Q Meaningful Use (DIS) - VTE *Q VTE Criteria *Q: - Stroke *Q Stroke Criteria *Q: - AMI *Q AMI Criteria *Q:
[2017-05-25] MEDS ORDERED: Piperacillin/Tazobactam/Dext 3.375 GM in Premix Bag 1 BAG IV SCH (20:00)
== END 2017-05-25 15:55 | DRG 862 ==
LOC: JP.MS 19:23
PROVIDERS: ADMIT Internal Medicine; ATTEND Internal Medicine
DX: T79.A11D Traumatic compartment syndrome of right upper extremity, subsequent encounter (principal); X58.XXXD Exposure to other specified factors, subsequent encounter; L03.113 Cellulitis of right upper limb; L02.511 Cutaneous abscess of right hand; I10 Essential (primary) hypertension; M19.90 Unspecified osteoarthritis, unspecified site
CPT/HCPCS: 36415; 80053; 80202; 81001; 85025; 94762; 97161-GP; A9270-GY; J1170; J2543; J3370; J7040; J7050

== ENCOUNTER 2020-07-06 18:03 | Emergency (ER) | payer BC ==
[2020-07-06] MEDS ORDERED: Sodium Chloride 0.9% 10 ML Syringe FLUSH PRN (18:11)
[2020-07-06] MEDS ORDERED: Sodium Chloride 0.9% 1,000 ML IV ONE (18:12)
[2020-07-06] MEDS ORDERED: Sodium Chloride 0.9% 10 ML Syringe FLUSH ONE (18:16)
[2020-07-06] MEDS ORDERED: Iopamidol 612 MG/ML 150 ML Bottle IV SCH (18:30)
[2020-07-06] MEDS ORDERED: Tranexamic Acid 1,000 MG in Sodium Chloride 0.9% 50 ML IV ONE (18:41)
--- NOTE | 2020-07-06 19:05 | CRLCT ---
INDICATION: Trauma left back TECHNIQUE: CT abdomen and pelvis acquired with 129 mL Isovue-300 IV contrast. COMPARISON: None FINDINGS: Lower chest: Unremarkable. Liver: Slight hepatic steatosis, otherwise unremarkable. Spleen: Unremarkable. Pancreas: Unremarkable. Gallbladder and bile ducts: Cholecystolithiasis in moderately distended gallbladder, but no evidence of cholecystitis/pericholecystic fluid. There is no biliary enlargement. Kidneys: Tiny bilateral cysts, otherwise unremarkable. Adrenal glands: Unremarkable. GI tract: Unremarkable. Appendix is normal. Vascular structures: Negative. No sign of aneurysm. Lymph nodes: Unremarkable. Miscellaneous: Left flank hematoma/stranding in subcutaneous tissues, possibly from recent trauma. Hematoma about 10 cm craniocaudad, and 5-6 cm AP and 4 cm transverse. No free air or significant free fluid. Pelvic Organs: Prostatomegaly and heterogeneity. Bones: Transverse process fractures on the left at L1, L2, L3 and L4. No other acute fracture visible. Multilevel degenerative disc disease and facet hypertrophic degenerative change of the lumbar spine. Bilateral hip joint space narrowing. IMPRESSION: 1. No acute abdominal pelvic visceral injury. 2. Hematoma formation in the left flank. 3. Transverse process fractures on left L1 through L4. 4. Mild diffuse hepatic steatosis. Apparently recanalized umbilical vein. 5. Cholecystolithiasis in distended gallbladder with no evidence of cholecystitis 6. Extensive prostatomegaly and heterogeneity, consider evaluation for prostate carcinoma. Please note that all CT scans at this facility use dose modulation, iterative reconstruction, and/or weight-based dosing when appropriate to reduce radiation dose to as low as reasonably achievable. Dictated by Murali Laws MD @ Jul 06 2020 6:45PM Signed by Dr. Murali Laws @ Jul 06 2020 7:04PM
[2020-07-06] MEDS ORDERED: fentaNYL 100 MCG/2 ML SDV IVPUSH ONE (19:07)
--- NOTE | 2020-07-06 19:31 | EDM.PDOC ---
ED HPI GENERAL MEDICAL PROBLEM - General Chief Complaint: General Stated Complaint: ACCIDENT VIA [facility] Time Seen by Provider: 07/06/20 18:11 Source of Information: Reports: Patient, EMS History Limitations: Reports: No Limitations - History of Present Illness INITIAL COMMENTS - FREE TEXT/NARRATIVE: Glynn is a 55-year-old male presenting to the ED via [facility] for evaluation of injury to his back. Patient was cutting wood and stepped back tripping over a log and landing on another frozen log that was stuck to the ground. Patient had acute onset of back pain especially on the left side with swelling immediately. He denied any loss of consciousness, shortness of breath, new onset of numbness or tingling, weakness, nausea or vomiting. He denies any head injury. In route the patient was complaining of 10 out of 10 pain. Upon arrival to the ED we initiated trauma measures including establishing to IVs. Left Buttock Pain Score (Numeric/FACES): 8 - Related Data Allergies Allergy/AdvReac Type Severity Reaction Status Date / Time No Known Allergies Allergy Verified 05/23/17 19:50 Home Meds: Home Meds Losartan [Cozaar] 50 mg PO DAILY 05/21/17 [History] Metoprolol Succinate [Toprol XL] 50 mg PO DAILY 05/21/17 [History] Albuterol Sulfate [Albuterol Sulfate Hfa] 8.5 gm IH Q4H PRN 07/06/20 [History] Tamsulosin HCl 1 tab PO DAILY 07/06/20 [History] Timolol Maleate/Latanoprost/Pf [Timolol 0.5%-Latanopros 0.005%] 1 drop TOP DAILY 07/06/20 [History] Past Medical History HEENT History: Reports: Impaired Vision Cardiovascular History: Reports: Hypertension Respiratory History: Reports: Other (See Below) Other Respiratory History: wheezing Gastrointestinal History: Reports: Colon Polyp Genitourinary History: Reports: Prostate Disorder Musculoskeletal History: Reports: Arthritis Dermatologic History: Reports: Cellulitis - Infectious Disease History Infectious Disease History: Reports: Chicken Pox - Past Surgical History HEENT Surgical History: Reports: Tonsillectomy, Other (See Below) Other HEENT Surgeries/Procedures: Will need cataract surgery GI Surgical History: Reports: Colonoscopy Social & Family History - Family History HEENT: Reports: None Cardiac: Reports: MA, Stent : Reports: None OBGYN: Reports: None Endocrine/Metabolic: Reports: Diabetes, Type I Hematologic: Reports: None Oncologic: Reports: Lung, Ovarian - Tobacco Use Tobacco Use Status *Q: Current Every Day Tobacco User Years of Tobacco use: 15 Packs/Tins Daily: 1 Used Tobacco, but Quit: No Second Hand Smoke Exposure: No - Caffeine Use Caffeine Use: Reports: Coffee - Recreational Drug Use Recreational Drug Use: No ED ROS GENERAL - Review of Systems Review Of Systems: See Below Constitutional: Reports: No Symptoms HEENT: Reports: No Symptoms Respiratory: Reports: No Symptoms Cardiovascular: Reports: No Symptoms Endocrine: Reports: No Symptoms GI/Abdominal: Reports: No Symptoms : Reports: No Symptoms Musculoskeletal: Reports: Back Pain, Other (Swelling in the lower left back) Skin: Reports: No Symptoms Neurological: Reports: No Symptoms Psychiatric: Reports: No Symptoms Hematologic/Lymphatic: Reports: No Symptoms Immunologic: Reports: No Symptoms ED EXAM, GENERAL - Physical Exam Exam: See Below Exam Limited By: No Limitations General Appearance: Alert, Moderate Distress Eye Exam: Bilateral Eye: EOMI, PERRL Nose: Normal Inspection, Normal Mucosa Throat/Mouth: Normal Inspection, Normal Lips, Normal Oropharynx, Normal Voice Head: Atraumatic, Normocephalic Neck: Normal Inspection, Supple, Non-Tender, Full Range of Motion Respiratory/Chest: No Respiratory Distress, Lungs Clear, Normal Breath Sounds, No Accessory Muscle Use Cardiovascular: Normal Peripheral Pulses, Regular Rate, Rhythm, No Murmur Peripheral Pulses: 2+: Radial (L), Radial (R), Posterior Tibial (L), Posterior Tibial (R) GI/Abdominal: Normal Bowel Sounds, Soft, Non-Tender Back Exam: Paraspinal Tenderness, Other (Very large hematoma formation over the lumbar spine to the left iliac crest. Tense tissue and significant tenderness to palpation.). No: CVA Tenderness (R), CVA Tenderness (L), Decreased Range of Motion, Vertebral Tenderness Extremities: Normal Inspection, Normal Range of Motion, Non-Tender Neurological: Alert, Oriented, CN II-XII Intact, Normal Cognition, No Motor/Sensory Deficits Psychiatric: Normal Affect, Normal Mood Skin Exam: Warm, Dry, Intact, Normal Color Lymphatic: No Adenopathy Course - Vital Signs Last Recorded V/S: Last Vital Signs Temp 35.8 C L 07/06/20 18:23 Pulse 82 07/06/20 18:59 Resp 14 07/06/20 18:23 BP 114/56 L 07/06/20 18:59 Pulse Ox 96 07/06/20 18:59 - Orders/Labs/Meds Orders: Active Orders 24 hr Category Date Time Status Sodium Chloride 0.9% [Normal Saline] 83 ml Med 07/06/20 18:30 Active IV ASDIRECTED Sodium Chloride 0.9% [Saline Flush] Med 07/06/20 18:11 Active 10 ml FLUSH ASDIRECTED PRN Saline Lock Insert [OM.PC] Routine Oth 07/06/20 18:11 Ordered Medication Orders Sodium Chloride (Normal Saline) 83 mls @ 3 mls/sec IV ASDIRECTED NIRAV Last Admin: 07/06/20 18:34 Dose: 3 mls/sec Documented by: LACEY Sodium Chloride (Saline Flush) 10 ml FLUSH ASDIRECTED PRN PRN Reason: Keep Vein Open Last Admin: 07/06/20 19:03 Dose: 10 ml Documented by: MARLYS Labs: Laboratory Tests 07/06/20 07/06/20 07/06/20 Range/Units 18:15 18:15 18:15 WBC 7.7 (4.5-11.0) K/uL RBC 3.39 L (4.30-5.90) M/uL Hgb 11.8 L D (12.0-15.0) g/dL Hct 35.1 L (40.0-54.0) % MCV 104 H (80-98) fL MCH 35 H (27-31) pg MCHC 34 (32-36) % Plt Count 141 L (150-400) K/uL Neut % (Auto) 64 (36-66) % Lymph % (Auto) 22 L (24-44) % Rabun % (Auto) 9 H (2-6) % Eos % (Auto) 4 (2-4) % Baso % (Auto) 1 (0-1) % PT 14.7 H (9.5-12.0) sec INR 1.36 H (0.80-1.20) APTT 26.4 L (27.0-36.0) sec Sodium 136 L (140-148) mmol/L Potassium 3.5 L (3.6-5.2) mmol/L Chloride 100 (100-108) mmol/L Carbon Dioxide 22 (21-32) mmol/L Anion Gap 17.5 H (5.0-14.0) mmol/L BUN 13 (7-18) mg/dL Creatinine 1.5 H D (0.8-1.3) mg/dL Est Cr Clr Drug Dosing 50.21 mL/min Estimated GFR (MDRD) 49 L (>60) Glucose 151 H (74-106) mg/dL Calcium 9.1 (8.5-10.1) mg/dL Total Bilirubin 1.2 H D (0.2-1.0) mg/dL AST 60 H D (15-37) U/L ALT 38 (12-78) U/L Alkaline Phosphatase 68 (46-116) U/L Total Protein 6.9 (6.4-8.2) g/dL Albumin 3.2 L (3.4-5.0) g/dL Globulin 3.7 H (2.3-3.5) g/dL Albumin/Globulin Ratio 0.9 L (1.2-2.2) Meds: Medications Generic Name Dose Route Start Last Admin Trade Name Freq PRN Reason Stop Dose Admin Sodium Chloride 83 mls @ 3 mls/sec 07/06/20 18:30 07/06/20 18:34 Normal Saline IV 3 mls/sec ASDIRECTED NIRAV Administration Sodium Chloride 10 ml 07/06/20 18:11 07/06/20 19:03 Saline Flush FLUSH 10 ml ASDIRECTED PRN Administration Keep Vein Open Discontinued Medications Generic Name Dose Route Start Last Admin Trade Name Freq PRN Reason Stop Dose Admin Fentanyl 100 mcg 07/06/20 19:07 07/06/20 19:12 Sublimaze IVPUSH 07/06/20 19:08 100 mcg ONETIME ONE Administration Sodium Chloride 1,000 mls @ 999 mls/hr 07/06/20 18:12 07/06/20 18:47 Normal Saline IV 07/06/20 19:12 999 mls/hr .BOLUS ONE Administration Tranexamic Acid 1,000 mg/ 60 mls @ 200 mls/hr 07/06/20 18:41 07/06/20 19:03 Sodium Chloride IV 07/06/20 18:58 200 mls/hr ONETIME ONE Administration Iopamidol 129 ml 07/06/20 18:30 07/06/20 18:34 Isovue-300 (61%) IV 150 ml . DIRECTED NIRAV Administration Sodium Chloride 10 ml 07/06/20 18:16 07/06/20 18:34 Saline Flush FLUSH 07/06/20 18:17 10 ml ONETIME ONE Administration - Radiology Interpretation Free Text/Narrative:: CT of the abdomen and pelvis with contrast was reviewed demonstrating #1 cholelithiasis with moderately distended gallbladder but no evidence of cholecystitis or pericystic fluid. #2 left transverse process fractures involving L1, L2, L3, and L4. #3 left flank hematoma with stranding in the subcutaneous tissue measuring 10 cm craniocaudad, 5 to 6 cm AP, and 4 cm transverse. No free air or significant free fluid. - Re-Assessments/Exams Free Text/Narrative Re-Assessment/Exam: 07/06/20 19:00 I reviewed the patient's labs showing a hemoglobin of 11.8. Previous labs have consistently showed a hemoglobin around 15. In addition, his INR is elevated slightly at 1.36. The patient is not on any anticoagulation including aspirin. The patient was given tranexamic acid 1000 mg IV. In addition he was given fentanyl 100 mcg IV for pain control. I discussed the case with Dr. Amanda from [facility] to arrange transfer the patient to the trauma service. The patient will go to the emergency room as a minor trauma. The concern is significant hemoglobin drop with the sizable hematoma likely continuing to bleed. He will certainly need a level of care higher than we can provide here at [facility]. I have arranged for the patient to go by [facility] to [facility]. Departure - Departure Time of Disposition: 19:15 Disposition: DC/Tfer to Other Condition: Fair Clinical Impression: Trauma Hematoma of left flank Qualifiers: Encounter type: initial encounter Qualified Code(s): S30.1XXA - Contusion of abdominal wall, initial encounter Fracture of transverse process of cervical vertebra Qualifiers: Encounter type: initial encounter Fracture type: closed Qualified Code(s): S12.9XXA - Fracture of neck, unspecified, initial encounter - Discharge Information *PRESCRIPTION DRUG MONITORING PROGRAM REVIEWED*: Not Applicable *COPY OF PRESCRIPTION DRUG MONITORING REPORT IN PATIENT SMOOTH: Not Applicable Referrals: Narendra Foster MD [Primary Care Provider] - Care Plan Goals: We are arranging transfer the patient to [facility] trauma service. Sepsis Event Note (ED) - Evaluation Sepsis Screening Result: No Definite Risk - Focused Exam Vital Signs: Vital Signs Temp Pulse Resp BP Pulse Ox 07/06/20 18:59 82 114/56 L 96 07/06/20 18:45 82 100/42 L 98 07/06/20 18:23 35.8 C L 73 14 90/42 L 94 L 07/06/20 18:19 73 90/42 L 94 L 07/06/20 18:16 35.8 C L 70 14 74/29 L 99 - Problem List & Annotations (1) Fracture of transverse process of cervical vertebra SNOMED Code(s): 476310997 Code(s): S12.9XXA - FRACTURE OF NECK, UNSPECIFIED, INITIAL ENCOUNTER Status: Acute Priority: High Current Visit: Yes Qualifiers: Encounter type: initial encounter Fracture type: closed Qualified Code(s): S12.9XXA - Fracture of neck, unspecified, initial encounter (2) Hematoma of left flank SNOMED Code(s): 006902582, 051101920 Code(s): S30.1XXA - CONTUSION OF ABDOMINAL WALL, INITIAL ENCOUNTER Status: Acute Priority: High Current Visit: Yes Qualifiers: Encounter type: initial encounter Qualified Code(s): S30.1XXA - Contusion of abdominal wall, initial encounter (3) Trauma SNOMED Code(s): 768932999 Code(s): T14.90XA - INJURY, UNSPECIFIED, INITIAL ENCOUNTER Status: Acute Priority: High Current Visit: Yes - Problem List Review Problem List Initiated/Reviewed/Updated: Yes - My Orders Last 24 Hours: My Active Orders 07/06/20 18:11 Sodium Chloride 0.9% [Saline Flush] 10 ml FLUSH ASDIRECTED PRN Saline Lock Insert [OM.PC] Routine 07/06/20 18:30 Sodium Chloride 0.9% [Normal Saline] 83 ml IV ASDIRECTED - Assessment/Plan Last 24 Hours: My Active Orders 07/06/20 18:11 Sodium Chloride 0.9% [Saline Flush] 10 ml FLUSH ASDIRECTED PRN Saline Lock Insert [OM.PC] Routine 07/06/20 18:30 Sodium Chloride 0.9% [Normal Saline] 83 ml IV ASDIRECTED
== END 2020-07-06 19:47 | disposition other institution (70) ==
LOC: JP.ED 18:03
DX: S12.000A Unspecified displaced fracture of first cervical vertebra, initial encounter for closed fracture (principal); S12.100A Unspecified displaced fracture of second cervical vertebra, initial encounter for closed fracture; S12.200A Unspecified displaced fracture of third cervical vertebra, initial encounter for closed fracture; S12.300A Unspecified displaced fracture of fourth cervical vertebra, initial encounter for closed fracture; S30.1XXA Contusion of abdominal wall, initial encounter; I10 Essential (primary) hypertension; Z72.0 Tobacco use; Z79.899 Other long term (current) drug therapy; W01.0XXA Fall on same level from slipping, tripping and stumbling without subsequent striking against object, initial encounter
CPT/HCPCS: 36415; 74177; 80053; 85025; 85610; 85730; 96365; 96375; 99285; J3010; J7030; Q9967

== ENCOUNTER 2021-04-25 19:48 | Emergency (ER) | payer SELFPAY ==
[2021-04-25] MEDS ORDERED: Sodium Chloride 0.9% 10 ML Syringe FLUSH PRN (20:21)
--- NOTE | 2021-04-25 20:23 | EDM.PDOC ---
<Moshe Stiles - Last Filed: 04/26/21 12:29> ED HPI GENERAL MEDICAL PROBLEM - General Chief Complaint: General Stated Complaint: BACK PAIN, BRUISING, RASH Time Seen by Provider: 04/25/21 20:15 - Related Data Allergies Allergy/AdvReac Type Severity Reaction Status Date / Time environmental allergies Allergy Sneezing Uncoded 04/25/21 20:52 Home Meds: Home Meds Losartan [Cozaar] 50 mg PO DAILY 05/21/17 [History] Metoprolol Succinate [Toprol XL] 50 mg PO DAILY 05/21/17 [History] Albuterol Sulfate [Albuterol Sulfate Hfa] 8.5 gm IH Q4H PRN 07/06/20 [History] Tamsulosin HCl 1 tab PO DAILY 07/06/20 [History] Timolol Maleate/Latanoprost/Pf [Timolol 0.5%-Latanopros 0.005%] 1 drop TOP DAILY 07/06/20 [History] Course - Re-Assessments/Exams Free Text/Narrative Re-Assessment/Exam: 04/26/21 12:29 After the hydration with IV fluid and the 2 units of packed RBCs the patient feels much better. He admitted that he had dark stool several weeks ago that lasted about a week and he has been feeling poorly since that time. Repeat labs are excellent, hemoglobin is 10.4 and electrolytes are now normal including kidney function. He agreed to go to [facility] for detox. I did do a scrape of the lesion on his left lateral leg, there was some hyphae present so I recommended topical Lamisil or Lotrimin cream as this is likely some slowly worsening ringworm. Departure - Departure Time of Disposition: 09:41 Disposition: DC/Tfer to Other Clinical Impression: Tinea corporis, Dehydration, Thrombocytopenia Alcohol intoxication Qualifiers: Complication of substance-induced condition: uncomplicated Qualified Code(s): F10.920 - Alcohol use, unspecified with intoxication, uncomplicated Anemia Qualifiers: Anemia type: other cause Other causes of anemia: other cause, not classified Qualified Code(s): D64.89 - Other specified anemias Stage 3 chronic kidney disease Qualifiers: Chronic kidney disease stage 3 subtype: stage 3b (GFR 30-44) Qualified Code(s): N18.32 - Chronic kidney disease, stage 3b - Discharge Information Instructions: Anemia, Alcohol Intoxication, [id number] Referrals: PCP,None [Primary Care Provider] - Forms: ED Department Discharge Care Plan Goals: Go directly out to [facility] for admission for detox, avoid any further alcohol intake in the future. Topical Lotrimin or Lamisil to your rash may be beneficial for the next few weeks. Recheck with Dr. Foster if not improving satisfactorily. <Jose Deluca - Last Filed: 04/26/21 18:32> ED HPI GENERAL MEDICAL PROBLEM - General Source of Information: Reports: Patient, Old Records, RN History Limitations: Reports: Other (patient is somewhat vague, not a great historian) - History of Present Illness INITIAL COMMENTS - FREE TEXT/NARRATIVE: 55 yo male presents after his dropped him off tonight stating that they think there is something wrong with his blood. He reports bruising, fairly heavy ETOH use, dark and loose stools, and a rash in a few different areas that is mildly itchy that has been present for months. Has not been to the clinic for any of these complaints. He denies dizziness with standing. Says he has been eating and drinking "fair". No fever. Denies taking too many of his BP meds. Onset: Unknown/Unsure Duration: Week(s): Location: Reports: Generalized Quality: Reports: Other (pain is not reported) Severity: Moderate Improves with: Reports: None Worsens with: Reports: Other (time) Context: Reports: Other (See HPI) Associated Symptoms: Reports: Loss of Appetite, Rash, Other (dark/loose stools). 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) denies pain Pain Score (Numeric/FACES): 0 Past Medical History HEENT History: Reports: Impaired Vision Cardiovascular History: Reports: Hypertension Respiratory History: Reports: Other (See Below) Other Respiratory History: wheezing Gastrointestinal History: Reports: Colon Polyp Genitourinary History: Reports: Prostate Disorder Musculoskeletal History: Reports: Arthritis Dermatologic History: Reports: Cellulitis - Infectious Disease History Infectious Disease History: Reports: Chicken Pox - Past Surgical History HEENT Surgical History: Reports: Tonsillectomy, Other (See Below) Other HEENT Surgeries/Procedures: Will need cataract surgery GI Surgical History: Reports: Colonoscopy Social & Family History - Family History HEENT: Reports: None Cardiac: Reports: [place], Stent : Reports: None OBGYN: Reports: None Endocrine/Metabolic: Reports: Diabetes, Type I Hematologic: Reports: None Oncologic: Reports: Lung, Ovarian - Caffeine Use Caffeine Use: Reports: Coffee ED ROS GENERAL - Review of Systems Review Of Systems: See Below Constitutional: Reports: Malaise, Decreased Appetite HEENT: Reports: No Symptoms Respiratory: Reports: No Symptoms Cardiovascular: Reports: No Symptoms Endocrine: Reports: No Symptoms GI/Abdominal: Reports: Black Stool, Diarrhea, Decreased Appetite. Denies: Abdominal Pain, Nausea, Vomiting : Reports: No Symptoms Musculoskeletal: Reports: Back Pain (chronic) Skin: Reports: Rash (not new) Neurological: Reports: No Symptoms Psychiatric: Reports: No Symptoms ED EXAM, GENERAL - Physical Exam Exam: See Below Exam Limited By: No Limitations General Appearance: Alert, WD/WN, No Apparent Distress Eye Exam: Bilateral Eye: Normal Inspection Ears: Normal External Exam, Normal Canal, Hearing Grossly Normal Ear Exam: Bilateral Ear: Auricle Normal, Canal Normal Nose: Normal Inspection, No Blood Throat/Mouth: Normal Inspection, Normal Lips, Normal Oropharynx, Normal Voice, No Airway Compromise Head: Atraumatic, Normocephalic Neck: Normal Inspection Respiratory/Chest: No Respiratory Distress, Lungs Clear, Normal Breath Sounds, No Accessory Muscle Use Cardiovascular: Regular Rate, Rhythm, No Edema. No: Tachycardia GI/Abdominal: Normal Bowel Sounds, Soft, Non-Tender, No Distention, Other (rectal shows formed stool, brown in color) Extremities: Normal Inspection Neurological: Alert, Oriented, CN II-XII Intact, Normal Cognition, No Motor/Sensory Deficits Psychiatric: Normal Affect, Normal Mood, Other (odd affect) Skin Exam: Warm, Dry, Intact, Normal Color, Rash (has scaly, somewhat red, plaque-like rash in a few areas(largest L lateral thigh) with slightly raised edges suggestive of tinea corporis. ). No: No Rash Course - Vital Signs Text/Narrative:: Dr. Vital called @ , Lou called @ Last Recorded V/S: Last Vital Signs Temp 37.2 C 04/26/21 08:01 Pulse 74 04/26/21 08:40 Resp 14 04/26/21 08:40 BP 108/56 L 04/26/21 08:40 Pulse Ox 95 04/26/21 08:40 - Orders/Labs/Meds Orders: Active Orders 24 hr Category Date Time Status METHYLMALONIC ACID, SERUM Routine Lab 04/25/21 20:50 Received Saline Lock Insert [OM.PC] Routine Oth 04/25/21 20:21 Ordered Transfuse Red Blood Cells [COMM] Urgent Oth 04/26/21 01:48 Ordered Labs: Laboratory Tests 04/25/21 04/25/21 04/25/21 Range/Units 20:37 20:37 20:37 WBC 5.5 (4.5-11.0) K/uL RBC 2.59 L (4.30-5.90) M/uL Hgb 9.4 L D (12.0-15.0) g/dL Hct 27.2 L (40.0-54.0) % MCV 105 H (80-98) fL MCH 36 H (27-31) pg MCHC 35 (32-36) % Plt Count 70 L (150-400) K/uL Percent Retic (0.5-1.5) % Sodium 145 (140-148) mmol/L Potassium 4.4 (3.6-5.2) mmol/L Chloride 108 (100-108) mmol/L Carbon Dioxide 23 (21-32) mmol/L Anion Gap 13.9 (5.0-14.0) mmol/L BUN 20 H D (7-18) mg/dL Creatinine 2.1 H (0.8-1.3) mg/dL Est Cr Clr Drug Dosing 31.99 mL/min Estimated GFR (MDRD) 33 L (>60) Glucose 127 H (74-106) mg/dL Calcium 8.9 (8.5-10.1) mg/dL Total Bilirubin 1.3 H (0.2-1.0) mg/dL Direct Bilirubin (0.0-0.2) mg/dL AST 110 H D (15-37) U/L ALT 66 (12-78) U/L Alkaline Phosphatase 76 (46-116) U/L Lactate Dehydrogenase (85-227) U/L Total Protein 7.0 (6.4-8.2) g/dL Albumin 3.1 L (3.4-5.0) g/dL Globulin 3.9 H (2.3-3.5) g/dL Albumin/Globulin Ratio 0.8 L (1.2-2.2) Vitamin B12 (193-986) pg/ml Urine Color (YELLOW) Urine Appearance (CLEAR) Urine pH (5.0-8.0) Ur Specific [place] (1.008-1.030) Urine Protein (NEGATIVE) mg/dL Urine Glucose (UA) (NEGATIVE) mg/dL Urine Ketones (NEGATIVE) mg/dL Urine Occult Blood (NEGATIVE) Urine Nitrite (NEGATIVE) Urine Bilirubin (NEGATIVE) Urine Urobilinogen (0.2-1.0) EU/dL Ur Leukocyte Esterase (NEGATIVE) Urine RBC (0-5) Urine WBC (0-5) Ur Epithelial Cells Amorphous Sediment Urine Bacteria Urine Mucus Urine Opiates Screen (NEGATIVE) Ur Oxycodone Screen (NEGATIVE) Urine Methadone Screen (NEGATIVE) Ur Propoxyphene Screen (NEGATIVE) Ur Barbiturates Screen (NEGATIVE) Ur Tricyclics Screen (NEGATIVE) Ur Phencyclidine Scrn (NEGATIVE) Ur Amphetamine Screen (NEGATIVE) U Methamphetamines Scrn (NEGATIVE) Urine MDMA Screen (NEGATIVE) U Benzodiazepines Scrn (NEGATIVE) U Cocaine Metab Screen (NEGATIVE) U Marijuana (THC) Screen (NEGATIVE) Ethyl Alcohol 333 mg/dL Influenza Type A RNA (NEGATIVE) RSV RNA (INAAT) (NEGATIVE) Influenza Type B RNA (NEGATIVE) SARS-CoV-2 RNA (CALVIN) (NEGATIVE) Blood Type Gel Antibody Screen Crossmatch 04/25/21 04/26/21 04/26/21 Range/Units 20:51 01:23 01:23 WBC (4.5-11.0) K/uL RBC (4.30-5.90) M/uL Hgb 7.3 L D (12.0-15.0) g/dL Hct (40.0-54.0) % MCV (80-98) fL MCH (27-31) pg MCHC (32-36) % Plt Count (150-400) K/uL Percent Retic (0.5-1.5) % Sodium (140-148) mmol/L Potassium (3.6-5.2) mmol/L Chloride (100-108) mmol/L Carbon Dioxide (21-32) mmol/L Anion Gap (5.0-14.0) mmol/L BUN (7-18) mg/dL Creatinine (0.8-1.3) mg/dL Est Cr Clr Drug Dosing mL/min Estimated GFR (MDRD) (>60) Glucose (74-106) mg/dL Calcium (8.5-10.1) mg/dL Total Bilirubin (0.2-1.0) mg/dL Direct Bilirubin (0.0-0.2) mg/dL AST (15-37) U/L ALT (12-78) U/L Alkaline Phosphatase (46-116) U/L Lactate Dehydrogenase (85-227) U/L Total Protein (6.4-8.2) g/dL Albumin (3.4-5.0) g/dL Globulin (2.3-3.5) g/dL Albumin/Globulin Ratio (1.2-2.2) Vitamin B12 1093 H (193-986) pg/ml Urine Color (YELLOW) Urine Appearance (CLEAR) Urine pH (5.0-8.0) Ur Specific [place] (1.008-1.030) Urine Protein (NEGATIVE) mg/dL Urine Glucose (UA) (NEGATIVE) mg/dL Urine Ketones (NEGATIVE) mg/dL Urine Occult Blood (NEGATIVE) Urine Nitrite (NEGATIVE) Urine Bilirubin (NEGATIVE) Urine Urobilinogen (0.2-1.0) EU/dL Ur Leukocyte Esterase (NEGATIVE) Urine RBC (0-5) Urine WBC (0-5) Ur Epithelial Cells Amorphous Sediment Urine Bacteria Urine Mucus Urine Opiates Screen (NEGATIVE) Ur Oxycodone Screen (NEGATIVE) Urine Methadone Screen (NEGATIVE) Ur Propoxyphene Screen (NEGATIVE) Ur Barbiturates Screen (NEGATIVE) Ur Tricyclics Screen (NEGATIVE) Ur Phencyclidine Scrn (NEGATIVE) Ur Amphetamine Screen (NEGATIVE) U Methamphetamines Scrn (NEGATIVE) Urine MDMA Screen (NEGATIVE) U Benzodiazepines Scrn (NEGATIVE) U Cocaine Metab Screen (NEGATIVE) U Marijuana (THC) Screen (NEGATIVE) Ethyl Alcohol mg/dL Influenza Type A RNA (NEGATIVE) RSV RNA (INAAT) (NEGATIVE) Influenza Type B RNA (NEGATIVE) SARS-CoV-2 RNA (CALVIN) (NEGATIVE) Blood Type O POSITIVE Gel Antibody Screen Negative Crossmatch See Detail 04/26/21 04/26/21 04/26/21 Range/Units 01:23 01:23 01:23 WBC (4.5-11.0) K/uL RBC (4.30-5.90) M/uL Hgb (12.0-15.0) g/dL Hct (40.0-54.0) % MCV (80-98) fL MCH (27-31) pg MCHC (32-36) % Plt Count (150-400) K/uL Percent Retic 0.9 (0.5-1.5) % Sodium (140-148) mmol/L Potassium (3.6-5.2) mmol/L Chloride (100-108) mmol/L Carbon Dioxide (21-32) mmol/L Anion Gap (5.0-14.0) mmol/L BUN (7-18) mg/dL Creatinine (0.8-1.3) mg/dL Est Cr Clr Drug Dosing mL/min Estimated GFR (MDRD) (>60) Glucose (74-106) mg/dL Calcium (8.5-10.1) mg/dL Total Bilirubin 1.1 H (0.2-1.0) mg/dL Direct Bilirubin 0.67 H (0.0-0.2) mg/dL AST (15-37) U/L ALT (12-78) U/L Alkaline Phosphatase (46-116) U/L Lactate Dehydrogenase 202 (85-227) U/L Total Protein (6.4-8.2) g/dL Albumin (3.4-5.0) g/dL Globulin (2.3-3.5) g/dL Albumin/Globulin Ratio (1.2-2.2) Vitamin B12 (193-986) pg/ml Urine Color (YELLOW) Urine Appearance (CLEAR) Urine pH (5.0-8.0) Ur Specific [place] (1.008-1.030) Urine Protein (NEGATIVE) mg/dL Urine Glucose (UA) (NEGATIVE) mg/dL Urine Ketones (NEGATIVE) mg/dL Urine Occult Blood (NEGATIVE) Urine Nitrite (NEGATIVE) Urine Bilirubin (NEGATIVE) Urine Urobilinogen (0.2-1.0) EU/dL Ur Leukocyte Esterase (NEGATIVE) Urine RBC (0-5) Urine WBC (0-5) Ur Epithelial Cells Amorphous Sediment Urine Bacteria Urine Mucus Urine Opiates Screen (NEGATIVE) Ur Oxycodone Screen (NEGATIVE) Urine Methadone Screen (NEGATIVE) Ur Propoxyphene Screen (NEGATIVE) Ur Barbiturates Screen (NEGATIVE) Ur Tricyclics Screen (NEGATIVE) Ur Phencyclidine Scrn (NEGATIVE) Ur Amphetamine Screen (NEGATIVE) U Methamphetamines Scrn (NEGATIVE) Urine MDMA Screen (NEGATIVE) U Benzodiazepines Scrn (NEGATIVE) U Cocaine Metab Screen (NEGATIVE) U Marijuana (THC) Screen (NEGATIVE) Ethyl Alcohol mg/dL Influenza Type A RNA (NEGATIVE) RSV RNA (INAAT) (NEGATIVE) Influenza Type B RNA (NEGATIVE) SARS-CoV-2 RNA (ACLVIN) (NEGATIVE) Blood Type Gel Antibody Screen Crossmatch 04/26/21 04/26/21 04/26/21 Range/Units 01:30 03:31 03:31 WBC (4.5-11.0) K/uL RBC (4.30-5.90) M/uL Hgb (12.0-15.0) g/dL Hct (40.0-54.0) % MCV (80-98) fL MCH (27-31) pg MCHC (32-36) % Plt Count (150-400) K/uL Percent Retic (0.5-1.5) % Sodium (140-148) mmol/L Potassium (3.6-5.2) mmol/L Chloride (100-108) mmol/L Carbon Dioxide (21-32) mmol/L Anion Gap (5.0-14.0) mmol/L BUN (7-18) mg/dL Creatinine (0.8-1.3) mg/dL Est Cr Clr Drug Dosing mL/min Estimated GFR (MDRD) (>60) Glucose (74-106) mg/dL Calcium (8.5-10.1) mg/dL Total Bilirubin (0.2-1.0) mg/dL Direct Bilirubin (0.0-0.2) mg/dL AST (15-37) U/L ALT (12-78) U/L Alkaline Phosphatase (46-116) U/L Lactate Dehydrogenase (85-227) U/L Total Protein (6.4-8.2) g/dL Albumin (3.4-5.0) g/dL Globulin (2.3-3.5) g/dL Albumin/Globulin Ratio (1.2-2.2) Vitamin B12 (193-986) pg/ml Urine Color Yellow (YELLOW) Urine Appearance Clear (CLEAR) Urine pH 6.0 (5.0-8.0) Ur Specific [place] 1.015 (1.008-1.030) Urine Protein Negative (NEGATIVE) mg/dL Urine Glucose (UA) Negative (NEGATIVE) mg/dL Urine Ketones Negative (NEGATIVE) mg/dL Urine Occult Blood Negative (NEGATIVE) Urine Nitrite Negative (NEGATIVE) Urine Bilirubin Negative (NEGATIVE) Urine Urobilinogen 1.0 (0.2-1.0) EU/dL Ur Leukocyte Esterase Negative (NEGATIVE) Urine RBC 0-5 (0-5) Urine WBC 0-5 (0-5) Ur Epithelial Cells Not seen Amorphous Sediment Not seen Urine Bacteria Not seen Urine Mucus Rare Urine Opiates Screen Negative (NEGATIVE) Ur Oxycodone Screen Negative (NEGATIVE) Urine Methadone Screen Negative (NEGATIVE) Ur Propoxyphene Screen Negative (NEGATIVE) Ur Barbiturates Screen Negative (NEGATIVE) Ur Tricyclics Screen Negative (NEGATIVE) Ur Phencyclidine Scrn Negative (NEGATIVE) Ur Amphetamine Screen Negative (NEGATIVE) U Methamphetamines Scrn Negative (NEGATIVE) Urine MDMA Screen Negative (NEGATIVE) U Benzodiazepines Scrn Negative (NEGATIVE) U Cocaine Metab Screen Negative (NEGATIVE) U Marijuana (THC) Screen Negative (NEGATIVE) Ethyl Alcohol mg/dL Influenza Type A RNA Negative (NEGATIVE) RSV RNA (INAAT) Negative (NEGATIVE) Influenza Type B RNA Negative (NEGATIVE) SARS-CoV-2 RNA (CALVIN) Negative (NEGATIVE) Blood Type Gel Antibody Screen Crossmatch 04/26/21 04/26/21 Range/Units 09:05 09:05 WBC (4.5-11.0) K/uL RBC (4.30-5.90) M/uL Hgb 10.5 L D (12.0-15.0) g/dL Hct (40.0-54.0) % MCV (80-98) fL MCH (27-31) pg MCHC (32-36) % Plt Count (150-400) K/uL Percent Retic (0.5-1.5) % Sodium 144 (140-148) mmol/L Potassium 4.9 (3.6-5.2) mmol/L Chloride 111 H (100-108) mmol/L Carbon Dioxide 21 (21-32) mmol/L Anion Gap 16.9 H (5.0-14.0) mmol/L BUN 17 (7-18) mg/dL Creatinine 2.0 H (0.8-1.3) mg/dL Est Cr Clr Drug Dosing 33.59 mL/min Estimated GFR (MDRD) 35 L (>60) Glucose 96 (74-106) mg/dL Calcium 8.1 L (8.5-10.1) mg/dL Total Bilirubin (0.2-1.0) mg/dL Direct Bilirubin (0.0-0.2) mg/dL AST (15-37) U/L ALT (12-78) U/L Alkaline Phosphatase (46-116) U/L Lactate Dehydrogenase (85-227) U/L Total Protein (6.4-8.2) g/dL Albumin (3.4-5.0) g/dL Globulin (2.3-3.5) g/dL Albumin/Globulin Ratio (1.2-2.2) Vitamin B12 (193-986) pg/ml Urine Color (YELLOW) Urine Appearance (CLEAR) Urine pH (5.0-8.0) Ur Specific [place] (1.008-1.030) Urine Protein (NEGATIVE) mg/dL Urine Glucose (UA) (NEGATIVE) mg/dL Urine Ketones (NEGATIVE) mg/dL Urine Occult Blood (NEGATIVE) Urine Nitrite (NEGATIVE) Urine Bilirubin (NEGATIVE) Urine Urobilinogen (0.2-1.0) EU/dL Ur Leukocyte Esterase (NEGATIVE) Urine RBC (0-5) Urine WBC (0-5) Ur Epithelial Cells Amorphous Sediment Urine Bacteria Urine Mucus Urine Opiates Screen (NEGATIVE) Ur Oxycodone Screen (NEGATIVE) Urine Methadone Screen (NEGATIVE) Ur Propoxyphene Screen (NEGATIVE) Ur Barbiturates Screen (NEGATIVE) Ur Tricyclics Screen (NEGATIVE) Ur Phencyclidine Scrn (NEGATIVE) Ur Amphetamine Screen (NEGATIVE) U Methamphetamines Scrn (NEGATIVE) Urine MDMA Screen (NEGATIVE) U Benzodiazepines Scrn (NEGATIVE) U Cocaine Metab Screen (NEGATIVE) U Marijuana (THC) Screen (NEGATIVE) Ethyl Alcohol mg/dL Influenza Type A RNA (NEGATIVE) RSV RNA (INAAT) (NEGATIVE) Influenza Type B RNA (NEGATIVE) SARS-CoV-2 RNA (CALVIN) (NEGATIVE) Blood Type Gel Antibody Screen Crossmatch Meds: Medications Discontinued Medications Generic Name Dose Route Start Last Admin Trade Name Freq PRN Reason Stop Dose Admin Lactated Ringer's 1,000 mls @ 1,000 mls/hr 04/25/21 20:34 04/25/21 20:38 Ringers, Lactated IV 04/25/21 21:33 1,000 mls/hr BOLUS ONE Administration Multivitamins/Minerals 10 ml/ 1,017.2 mls @ 500 mls/hr 04/25/21 21:30 04/25/21 22:09 Thiamine HCl 100 mg/ Folic IV 500 mls/hr Acid 1 mg/ Magnesium Sulfate 3 ASDIRECTED NIRAV Administration gm/ Sodium Chloride Sodium Chloride 1,000 mls @ 1,000 mls/hr 04/26/21 00:12 04/26/21 00:22 Normal Saline IV 04/26/21 01:11 1,000 mls/hr .BOLUS ONE Administration Sodium Chloride 1,000 mls @ 1,000 mls/hr 04/26/21 01:19 04/26/21 01:51 Normal Saline IV 04/26/21 02:18 125 mls/hr .BOLUS ONE Infusion Sodium Chloride 10 ml 04/25/21 20:21 04/25/21 20:53 Sodium Chloride 0.9% 10 Ml Syringe FLUSH 10 ml ASDIRECTED PRN Administration Keep Vein Open - Re-Assessments/Exams Free Text/Narrative Re-Assessment/Exam: 04/26/21 00:15 Bladder scan after nearly 2 liters of IV fluids shows only 37 ml present. Departure - Discharge Information *PRESCRIPTION DRUG MONITORING PROGRAM REVIEWED*: Not Applicable *COPY OF PRESCRIPTION DRUG MONITORING REPORT IN PATIENT SMOOTH: Not Applicable Sepsis Event Note (ED) - Focused Exam Vital Signs: Vital Signs Temp Temp Pulse Resp BP Pulse Ox 04/26/21 08:40 74 14 108/56 L 95 04/26/21 08:01 37.2 C 80 13 107/61 97 04/26/21 07:55 83 16 106/59 L 95 04/26/21 07:06 37.6 C 83 11 L 101/51 L 97 04/26/21 06:41 37.4 C 78 12 107/63 98 04/26/21 06:40 37.4 C 78 12 107/63 98 - My Orders Last 24 Hours: My Active Orders 04/25/21 20:21 Saline Lock Insert [OM.PC] Routine 04/25/21 20:50 METHYLMALONIC ACID, SERUM Routine 04/26/21 01:48 Transfuse Red Blood Cells [COMM] Urgent - Assessment/Plan Last 24 Hours: My Active Orders 04/25/21 20:21 Saline Lock Insert [OM.PC] Routine 04/25/21 20:50 METHYLMALONIC ACID, SERUM Routine 04/26/21 01:48 Transfuse Red Blood Cells [COMM] Urgent
[2021-04-25] MEDS ORDERED: Lactated Ringers 1,000 ML IV ONE (20:34)
[2021-04-25] MEDS ORDERED: MVI, Adult with Vitamin K 10 ML, Thiamine 100 MG, Folic Acid 1 MG, Magnesium Sulfate 3 ... IV SCH ×5 (21:30)
[2021-04-26] MEDS ORDERED: Sodium Chloride 0.9% 1,000 ML IV ONE ×2 (00:12→01:19)
[2021-04-26 02:10] LABS: CORONAVIRUS COVID-19 NAA NEGATIVE (NEGATIVE)
== END 2021-04-26 10:45 | disposition other institution (70) ==
LOC: JP.ED 19:48
DX: F10.129 Alcohol abuse with intoxication, unspecified (principal); I12.9 Hypertensive chronic kidney disease with stage 1 through stage 4 chronic kidney disease, or unspecified chronic kidney disease; N18.32 Chronic kidney disease, stage 3b; D63.1 Anemia in chronic kidney disease; B35.4 Tinea corporis; E86.0 Dehydration; D69.6 Thrombocytopenia, unspecified; Z20.822 Contact with and (suspected) exposure to COVID-19; Z91.09 Other allergy status, other than to drugs and biological substances; Z79.899 Other long term (current) drug therapy; Y90.8 Blood alcohol level of 240 mg/100 ml or more
CPT/HCPCS: 0241U; 36415; 36430; 80048; 80053; 80305; 80307; 81001; 82247; 82248; 82272; 82607; 83615; 83921; 85018; 85027; 85045; 86850; 86900; 86901; 86920; 86922; 87220; 96365; 96366; 99284; J3411; J3475; J7030; J7120; P9016; J3490

== ENCOUNTER 2021-08-22 16:02 | Emergency (ER) | payer MEDICAID ==
[2021-08-22] MEDS ORDERED: LORazepam 1 MG Tab PO ONE (16:23)
[2021-08-22 18:14] LABS: CORONAVIRUS COVID-19 NAA NEGATIVE (NEGATIVE)
== END 2021-08-22 19:09 ==
LOC: JP.ED 16:02
DX: F10.129 Alcohol abuse with intoxication, unspecified (principal); I10 Essential (primary) hypertension; Z91.09 Other allergy status, other than to drugs and biological substances; Z79.899 Other long term (current) drug therapy; Z20.822 Contact with and (suspected) exposure to COVID-19; Y90.8 Blood alcohol level of 240 mg/100 ml or more
CPT/HCPCS: 0241U; 36415; 80305; 80307; 99283; 99284; A9270

== ENCOUNTER 2022-09-11 19:23 | Emergency (ER) | payer MEDICAID ==
[2022-09-11 21:13] LABS: ESTIMATED GFR 50 mL/min (>60)
[2022-09-11] MEDS ORDERED: Multivitamins with Iron/Calcium/Folic Acid/Minerals Tab PO ONE (21:48)
[2022-09-11] MEDS ORDERED: Thiamine 200 MG/2 ML MDV IVPUSH ONE (21:48)
[2022-09-11] MEDS ORDERED: Sodium Chloride 0.9% 1,000 ML IV SCH (22:00)
== END 2022-09-12 00:30 | disposition other institution (70) ==
LOC: JP.ED 19:23
DX: F10.920 Alcohol use, unspecified with intoxication, uncomplicated (principal); I10 Essential (primary) hypertension; Z79.899 Other long term (current) drug therapy; Z20.822 Contact with and (suspected) exposure to COVID-19; Y90.8 Blood alcohol level of 240 mg/100 ml or more
CPT/HCPCS: 36415; 80053; 80305; 80307; 85025; 87635; 96361; 96374; 99284; A9270; J3411; J7030; U0002